=== PATIENT | female | born 1980 | race Two or more races ===

== ENCOUNTER 2017-01-09 01:21 | Observation (INO) | payer SELFPAY ==
[~2017-01-09] VITALS: Ht 162.6 cm; Wt 62.1 kg
[2017-01-09 03:48] VITALS: BP 114/75
== END 2017-01-09 06:00 | disposition home or self-care (01) ==
LOC: 3 SO LND 01:21
PROVIDERS: ADMIT Obstetrics & Gynecology; ATTEND Obstetrics & Gynecology
DX: O62.9 Abnormality of forces of labor, unspecified (principal); O48.0 Post-term pregnancy; Z3A.40 40 weeks gestation of pregnancy
CPT/HCPCS: G0378; G0379

== ENCOUNTER 2017-01-16 18:06 | Inpatient (IN) | payer SELFPAY ==
[~2017-01-16] VITALS: Ht 162.6 cm; Wt 62.1 kg
[2017-01-16] MEDS ORDERED: IBUPROFEN 600 MG TABLET. PO PRN (19:30)
[2017-01-16] MEDS ORDERED: BUTORPHANOL 2 MG/ML VIAL. IV PRN ×2 (19:30→19:45)
[2017-01-16] MEDS ORDERED: LIDOCAINE 1% PF 30 ML VIAL. INJ PRN (19:30)
[2017-01-16] MEDS ORDERED: TERBUTALINE 1 MG/ML VIAL. SQ PRN (19:30)
[2017-01-16] MEDS ORDERED: OXYTOCIN 30 UNIT/500 ML PREMIX 500 ML IV PRN (19:30)
[2017-01-16] MEDS ORDERED: ONDANSETRON PF 4 MG/2 ML VIAL. IV PRN ×2 (19:30→21:15)
[2017-01-16] MEDS ORDERED: 0.9 % SODIUM CHLORIDE 10 ML DISP.SYRIN. IV PRN (19:30)
[2017-01-16] MEDS: IV RINGERS,LACTATED 1000ML 1,000 ML IV SCH (19:45)
[2017-01-16 20:10] LABS: HEMATOCRIT 39.5 % (36.0-47.0); HEMOGLOBIN 12.4 g/dL (12.0-15.5); RED BLOOD COUNT 5.53 x10^6/uL (3.50-5.40); RED CELL DISTRIBUTION WIDTH 17.9 % (11.5-14.5); WHITE BLOOD COUNT 11.4 x10^3/uL (4.0-11.0)
[2017-01-16 20:34] VITALS: BP 114/75
[2017-01-16] MEDS ORDERED: L&D EPIDURAL CASSETTE 100 ML EP ONE (20:40)
[2017-01-16] MEDS ORDERED: ROPIVacaine 0.2% IN 0.9%NACL PF 40 MG/20 ML DISP.SYRIN. ONE (20:40)
[2017-01-16] MEDS ORDERED: L&D EPIDURAL CASSETTE 100 ML PUMP.RESVR. EP ONE (21:00)
[2017-01-16] MEDS ORDERED: OXYTOCIN in NORMAL SALINE PREMIX 30 UNIT/500 ML BAG. IV ONE (21:00)
[2017-01-16] MEDS ORDERED: IV RINGERS,LACTATED 1000ML 1,000 ML IV SCH (21:11)
[2017-01-16] MEDS ORDERED: NALOXONE 0.4 MG/ML VIAL. IV PRN (21:15)
[2017-01-16] MEDS ORDERED: ePHEDrine PF IN SALINE 50 MG/5 ML DISP.SYRIN IV PRN (21:15)
[2017-01-16] MEDS ORDERED: fentaNYL PF VIAL 100 MCG/2 ML VIAL EPI PRN (21:15)
[2017-01-16] MEDS ORDERED: L&D EPIDURAL CASSETTE 100 ML EP PRN (21:15)
[2017-01-16] MEDS ORDERED: ROPIVacaine 0.2% IN 0.9%NACL PF 40 MG/20 ML DISP.SYRIN. EPI PRN (21:15)
--- NOTE | 2017-01-16 23:41 | PDOC1 ---
OB - History Hx of Present Care: Good Care Ultrasounds: Normal mid trimester US Obstetrical Complications: None Medical Complications: None Past Family/Social History * Past Medical, Surgical, Family and Obstetric Histories reviewed from chart. Rubella: Immune RPR/VDRL: Negative GBS Status: Negative HBsAG: Negative OB - Chief Complaint & HPI Date of Admission: Date of Admission: Jan 16, 2017 at 18:06 Chief Complaint/History : 1 Para: 0 EGA: 40 Reason for admission: active labor Admission Nurse Assessment Rev: Yes Problems: OB - Admission Exam Physical Exam Vitals: VS - Last 72 Hours, by Label Date Time Temp Pulse Resp B/P (MAP) Pulse Ox O2 Delivery O2 Flow Rate FiO2 01/16/17 20:34 98.6 107 18 114/75 (88) Room Air 98.6 01/16/17 20:15 18 Room Air 01/16/17 19:46 20 HEENT: Normal Heart: Regular Rate Lungs: Clear Abdomen: Gravid, Non tender, Soft Extremities: Edema Reflexes: Normal Cervical Dilatation: 7cm Effacement: 75% Station: -2 Membranes: Intact Heart Rate: Normal Accelerations: Accelerations Present Decelerations: No decelerations Contractions on Admission: < 5 Minutes Apart Intensity: Firm Text A: 40 wks IUP Active labor P: Admit for labor management. JADA PRATHER Jr, MD Jan 16, 2017 23:40
--- NOTE | 2017-01-17 00:35 | PDOC ---
VAGINAL DELIVERY DATE DATE: 01/17/17 TIME: 00:34 : 1 Para: 1 EGA: 40 VAGINAL DELIVERY: VTX VACCUM ASSISTED: Yes NUMBER OF PULLS 3 NUMBER OF POP OFFS one MAXIMUM PRESSURE 600 mmhg PLACENTA: Spontaneous 02/25 SEX: Female WEIGHT Weight [ 2915 gm] Nuchal Cord: No Amniotic Fluid: Clear PAIN: Epidural EPISIOTOMY: No EXTENSION: Yes (1st degree midline laceration) REPAIRED WITH 2-0 vicryl EBL 300 ml COMPLICATIONS none CONDITION pt. stable Signs of Intrauterine Infectio: None Shoulder Dystocia: No Problems: JADA PRATHER Jr, MD Jan 17, 2017 00:35
[2017-01-17] MEDS ORDERED: SIMETHICONE 80 MG TAB.CHEW PO PRN (00:45)
[2017-01-17] MEDS ORDERED: OXYTOCIN 30 UNIT/500 ML PREMIX 500 ML IV PRN (00:45)
[2017-01-17] MEDS ORDERED: MAGNESIUM HYDROXIDE 2,400 MG/30 ML ORAL.SUSP. PO PRN (00:45)
[2017-01-17] MEDS ORDERED: DOCUSATE SODIUM 100 MG CAPSULE. PO PRN (00:45)
[2017-01-17] MEDS ORDERED: 0.9 % SODIUM CHLORIDE 10 ML DISP.SYRIN. IV PRN (00:45)
[2017-01-17] MEDS ORDERED: diphenhydrAMINE HCL 25 MG CAPSULE PO PRN (00:45)
[2017-01-17] MEDS ORDERED: ZOLPIDEM 5 MG TABLET. PO PRN (00:45)
[2017-01-17] MEDS ORDERED: MMR per PROTOCOL. MC PRN (00:45)
[2017-01-17] MEDS ORDERED: MAG HYDROX/ALUMINUM HYD/SIMETH 30 ML ORAL.SUSP PO PRN (00:45)
[2017-01-17] MEDS ORDERED: ACETAMINOPHEN 325 MG TABLET. PO PRN (00:45)
[2017-01-17] MEDS ORDERED: HYDROCORTISONE 1% TOPICAL OINTMENT 30GM TUBE. TP PRN (00:45)
[2017-01-17] MEDS ORDERED: IBUPROFEN 800 MG TABLET. PO PRN (00:45)
[2017-01-17] MEDS ORDERED: PHENYLEPH/MINERAL OIL/PETROLAT RECTAL OINTMENT 28GM TUBE. RC PRN (00:45)
[2017-01-17] MEDS ORDERED: BENZOCAINE 20% TOPICAL AEROSOL SPRAY 57GM CAN. TP PRN (00:45)
[2017-01-17 02:50] VITALS: BP 101/60
[2017-01-17] MEDS: IV RINGERS,LACTATED 1000ML 1,000 ML IV SCH (03:20)
[2017-01-17 05:34] VITALS: BP 117/59
[2017-01-17 08:45] VITALS: BP 107/68
[2017-01-17] MEDS: oxyCODONE/APAP 5/325 1 TAB TABLET PO PRN ×4 (14:13→23:10)
[2017-01-17 18:30] VITALS: BP 106/72
[2017-01-17 20:39] VITALS: BP 105/68
[2017-01-18 04:28] LABS: BASO % 0 % (0-3); EOS % 2 % (0-3); HEMATOCRIT 33.4 % (36.0-47.0); HEMOGLOBIN 10.5 g/dL (12.0-15.5); LYMPH # 2.4 x10^3/uL (1.0-4.8); LYMPH % 22 % (24-48); MEAN CORPUSCULAR HEMOGLOBIN 23 pg (25-35); MEAN CORPUSCULAR HGB CONC 32 g/dL (31-37); MEAN CORPUSCULAR VOLUME 72 fL (79-100); MONO % 7 % (0-9); NEUT % 69 % (31-73); PLATELET COUNT 220 x10^3/uL (140-400); RED BLOOD COUNT 4.63 x10^6/uL (3.50-5.40); RED CELL DISTRIBUTION WIDTH 17.7 % (11.5-14.5); WHITE BLOOD COUNT 10.8 x10^3/uL (4.0-11.0)
[2017-01-18 05:20] VITALS: BP 111/69
[2017-01-18 05:32] LABS: PLT ESTIMATE ADEQUATE (ADEQUATE)
[2017-01-18 05:33] LABS: MICROCYTOSIS SLIGHT
[2017-01-18 07:32] LABS: RPR REFLEX Non Reactive (Non Reactive)
[2017-01-18] MEDS ORDERED: FERROUS SULFATE 325 MG TABLET. PO SCH (08:00)
[2017-01-18] MEDS: oxyCODONE/APAP 5/325 1 TAB TABLET PO PRN (11:52)
[2017-01-18 12:45] VITALS: BP 113/70
--- NOTE | 2017-01-18 13:28 | PDOC ---
OB Progress Note Date of Service 01/18/17 Time of Evaluation 1325 Notes Pt. feeling well. No complaints. Lab Laboratory Tests Test 01/16/17 20:00 01/18/17 03:15 White Blood Count 11.4 x10^3/uL (4.0-11.0) 10.8 x10^3/uL (4.0-11.0) Red Blood Count 5.53 x10^6/uL (3.50-5.40) 4.63 x10^6/uL (3.50-5.40) Hemoglobin 12.4 g/dL (12.0-15.5) 10.5 g/dL (12.0-15.5) Hematocrit 39.5 % (36.0-47.0) 33.4 % (36.0-47.0) Mean Corpuscular Volume 72 fL (79-100) 72 fL (79-100) Mean Corpuscular Hemoglobin 22 pg (25-35) 23 pg (25-35) Mean Corpuscular Hemoglobin Concent 31 g/dL (31-37) 32 g/dL (31-37) Red Cell Distribution Width 17.9 % (11.5-14.5) 17.7 % (11.5-14.5) Platelet Count 258 x10^3/uL (140-400) 220 x10^3/uL (140-400) RPR Titer Additional Testing Non reactive (Non Reactive) Neutrophils (%) (Auto) 69 % (31-73) Lymphocytes (%) (Auto) 22 % (24-48) Monocytes (%) (Auto) 7 % (0-9) Eosinophils (%) (Auto) 2 % (0-3) Basophils (%) (Auto) 0 % (0-3) Neutrophils # (Auto) 7.5 x10^3uL (1.8-7.7) Lymphocytes # (Auto) 2.4 x10^3/uL (1.0-4.8) Monocytes # (Auto) 0.7 x10^3/uL (0.0-1.1) Eosinophils # (Auto) 0.2 x10^3/uL (0.0-0.7) Basophils # (Auto) 0.0 x10^3/uL (0.0-0.2) Platelet Estimate Adequate (ADEQUATE) Large Platelets Occ Giant Platelets Occ Microcytosis Slight Macrocytosis Slight Laboratory Tests Test 01/18/17 03:15 White Blood Count 10.8 x10^3/uL (4.0-11.0) Red Blood Count 4.63 x10^6/uL (3.50-5.40) Hemoglobin 10.5 g/dL (12.0-15.5) Hematocrit 33.4 % (36.0-47.0) Mean Corpuscular Volume 72 fL (79-100) Mean Corpuscular Hemoglobin 23 pg (25-35) Mean Corpuscular Hemoglobin Concent 32 g/dL (31-37) Red Cell Distribution Width 17.7 % (11.5-14.5) Platelet Count 220 x10^3/uL (140-400) Neutrophils (%) (Auto) 69 % (31-73) Lymphocytes (%) (Auto) 22 % (24-48) Monocytes (%) (Auto) 7 % (0-9) Eosinophils (%) (Auto) 2 % (0-3) Basophils (%) (Auto) 0 % (0-3) Neutrophils # (Auto) 7.5 x10^3uL (1.8-7.7) Lymphocytes # (Auto) 2.4 x10^3/uL (1.0-4.8) Monocytes # (Auto) 0.7 x10^3/uL (0.0-1.1) Eosinophils # (Auto) 0.2 x10^3/uL (0.0-0.7) Basophils # (Auto) 0.0 x10^3/uL (0.0-0.2) Platelet Estimate Adequate (ADEQUATE) Large Platelets Occ Giant Platelets Occ Microcytosis Slight Macrocytosis Slight Medications Current Medications Sodium Chloride (Normal Saline Flush) 3 ml QSHIFT PRN IV AFTER MEDS AND BLOOD DRAWS; Start 01/16/17 at 19:30 Ringer's Solution 1,000 ml @ 125 mls/hr Q8H IV Last administered on 01/16/17t 19:45; Start 01/16/17 at 19:20 Butorphanol Tartrate (Stadol) 1 mg PRN Q1HR PRN IV mild to moderate labor pain ; Start 01/16/17 at 19:30 Ondansetron HCl (Zofran) 4 mg PRN Q4HRS PRN IV NAUSEA/VOMITING; Start 01/16/17 at 19:30 Terbutaline Sulfate (Brethine) 0.25 mg 1X PRN PRN SQ SEE COMMENTS; Start at 19:30; Stop 01/17/17 at 19:29; Status DC Lidocaine HCl 30 ml 1X PRN PRN INJ SEE COMMENTS; Start 01/16/17 at 19:30; Stop 01/18/17 at 19:29 Oxytocin/Sodium Chloride 500 ml @ 0 mls/hr CONT PRN PRN IV Post delivery bleeding; Start 01/16/17 at 19:30 Ibuprofen (Motrin) 600 mg PRN Q6HRS PRN PO PAIN; Start 01/16/17 at 19:30 Butorphanol Tartrate (Stadol) 2 mg PRN Q2HR PRN IV PAIN Last administered on t 19:46; Start 01/16/17 at 19:45 Ropivacaine/ Fentanyl/NS 100 ml @ As Directed STK-MED ONCE EP ; Start 01/16/17 at 20:40; Stop 01/16/17 at 20:41; Status DC Ropivacaine 40 mg STK-MED ONCE .ROUTE ; Start 01/16/17 at 20:40; Stop 01/16/17 at 20:41; Status DC Ringer's Solution 1,000 ml @ 1,000 mls/hr Q1H IV ; Start 01/16/17 at 21:11; Stop 01/16/17 at 22:10; Status DC Ephedrine Sulfate 10 mg PRN Q2MIN PRN IV IF SBP<90; Start 01/16/17 at 21:15 Naloxone HCl (Narcan) 0.4 mg PRN Q1MIN PRN IV SEE COMMENTS; Start 01/16/17 at 21:15 Fentanyl Citrate (Fentanyl 2ml Vial) 100 mcg PRN 1X PRN EPI FOR ANESTHESIA; Start 01/16/17 at 21:15; Stop 01/17/17 at 21:14; Status DC Ropivacaine/ Fentanyl/NS 100 ml @ 14 mls/hr CONT PRN EP PAIN; Start 01/16/17 at 21:15 Ondansetron HCl (Zofran) 4 mg PRN Q6HRS PRN IV NAUSEA/VOMITING; Start 01/16/17 at 21:15 Ropivacaine 40 mg PRN 1X PRN EPI SEE COMMENTS Last administered on 01/16/17 21 :16; Start 01/16/17 at 21:15; Stop 01/17/17 at 21:14; Status DC Ephedrine Sulfate (Akovaz) 50 mg STK-MED ONCE .ROUTE ; Start 01/16/17 at 21:15; Stop 01/16/17 at 21:16; Status DC Sodium Chloride (Normal Saline Flush) 10 ml QSHIFT PRN IV AFTER MEDS AND BLOOD DRAWS; Start 01/17/17 at 00:45 Oxytocin/Sodium Chloride 500 ml @ 62.5 mls/hr CONT PRN IV SEE I/O RECORD; Start 01/17/17 at 00:45; Stop 01/17/17 at 08:44; Status DC Acetaminophen (Tylenol) 650 mg PRN Q6HRS PRN PO MILD PAIN / TEMP Last administered on 01/17/17 03:04; Start 01/17/17 at 00:45 Ibuprofen (Motrin) 800 mg PRN Q8HRS PRN PO INFLAMMATION/PAIN PREVENTION Last administered on 01/17/17 12:51; Start 01/17/17 at 00:45 Docusate Sodium (Colace) 100 mg PRN BID PRN PO CONSTIPATION; Start 01/17/17 at 00:45 Magnesium Hydroxide (Milk Of Magnesia) 2,400 mg PRN DAILY PRN PO CONSTIPATION; Start 01/17/17 at 00:45 Al Hydroxide/Mg Hydroxide (Mylanta Plus Xs) 30 ml PRN Q4HRS PRN PO HEARTBURN / GAS; Start 01/17/17 at 00:45 Simethicone (Gas-X) 80 mg PRN AFTMEALHC PRN PO GAS / BLOATING; Start 01/17/17 at 00:45 Diphenhydramine HCl (Benadryl) 25 mg PRN Q6HRS PRN PO ITCHING; Start 01/17/17 at 00:45 Benzocaine (Americaine) 1 spray PRN QID PRN TP TOPICAL PAIN; Start 01/17/17 at 00:45 Phenyleph/Shark Oil/Min Oil/Petrol (Preparation H) 1 fátima PRN QID PRN RC RECTAL PAIN; Start 01/17/17 at 00:45 Hydrocortisone (Cortaid) 1 fátima PRN QID PRN TP PERINEAL PAIN; Start 01/17/17 at 00:45 Ferrous Sulfate (Feosol) 325 mg BIDWMEALS PO ; Start 01/18/17 at 08:00 Zolpidem Tartrate (Ambien) 5 mg PRN QHS PRN PO INSOMNIA, MAY REPEAT X1; Start 01/17/17 at 00:45 Info (Do NOT chart on this placeholder) 1 ea 1X PRN PRN MC SEE COMMENTS; Start 01/17/17 at 00:45 Info (Do NOT chart on this placeholder) 1 ea 1X PRN PRN MC SEE COMMENTS; Start 01/17/17 at 00:45 Oxycodone/ Acetaminophen (Percocet 5/325) 2 tab PRN Q4HRS PRN PO MODERATE PAIN , SEVERE PAIN Last administered on 01/18/17t 11:52; Start 01/17/17 at 00:45 Ropivacaine/ Fentanyl/NS ([id number] 3 Mcg-0.1%) 100 ml STK-MED ONCE EP ; Start 01/16/17 at 21:00; Stop 01/17/17 at 08:51; Status DC Oxytocin/Sodium Chloride (Oxytocin Premix Infusion) 30 unit STK-MED ONCE IV ; Start 01/16/17 at 21:00; Stop 01/17/17 at 08:51; Status DC Exam Abd: soft, non tender, fundus firm Assessment PPD#1 s/p VAVD Plan of Care: See new orders (D/c home.) JADA PRATHER Jr, MD Jan 18, 2017 13:28
--- NOTE | 2017-01-18 13:29 | DISCH ---
DISCHARGE INSTRUCTIONS Condition on Discharge Condition on Discharge: Stable Activity After Discharge Activity Instructions for Disc: Activity as tolerated Lifting Instructions after Dis: No heavy lifting Driving Instructions after Dis: Do not drive today Diet after Discharge Diet after Discharge: Regular Contacting the DRSybil after DC Call your doctor for: Concerns you may have Follow-Up Follow up with: Dr. Li in 6 weeks. JADA PRATHER Jr, MD Jan 18, 2017 13:29
[2017-01-18] MEDS ORDERED: OXYC-323 PO (13:30)
[2017-01-18] MEDS ORDERED: IBUP-1060 PO (13:30)
== END 2017-01-18 13:40 | disposition home or self-care (01) | DRG 775 ==
LOC: 3 SO LND 18:06 → OBSVTOIN 18:06 → 3 SO LND 18:38 → 3 NORTH 01-17 02:50
PROVIDERS: ADMIT Obstetrics & Gynecology; ATTEND Obstetrics & Gynecology
PROC: 10D07Z6 Extraction of Products of Conception, Vacuum, Via Natural or Artificial Opening (ICD-10-PCS; principal; 2017-01-17)
PROC: 0HQ9XZZ Repair Perineum Skin, External Approach (ICD-10-PCS; 2017-01-17)
PROC: 3E0S3CZ (ICD-10-PCS; 2017-01-17)
PROC: 00HU33Z Insertion of Infusion Device into Spinal Canal, Percutaneous Approach (ICD-10-PCS; 2017-01-17)
DX: O70.0 First degree perineal laceration during delivery (principal); Z3A.40 40 weeks gestation of pregnancy; Z37.0 Single live birth
CPT/HCPCS: 36415; 85007; 85027; 86593; 86850; 86900; 86901; C1887; G0378; J2590; J2795; J7120